=== PATIENT | female | born 1980 | race Caucasian/White ===

== ENCOUNTER → 2019-07-01 15:35 | Outpatient (CLI) | payer MEDICAID, SELFPAY ==
[2019-07-01 19:18] LABS: Chlamydia Trachomatis by PCR Negative (Negative); Neisserai gonorrhoeae by PCR Negative (Negative); Probe Check PASS; Sample Adequacy Control PASS; Specimen Processing Control PASS
[2019-07-04 00:26] LABS: Rapid Plasmin Reagin (RPR) NONREACTIVE (NONREACTIVE)
[2019-07-04 14:11] LABS: HPV APTIMA, High Risk Negative (Negative); HPV Reflexed? YES, CHARGE PATIENT
== END ==
PROVIDERS: PCP Family Medicine; Visit Provider Obstetrics & Gynecology
DX: Z12.4 Encounter for screening for malignant neoplasm of cervix (principal); Z11.3 Encounter for screening for infections with a predominantly sexual mode of transmission
CPT/HCPCS: 36415; 86592; 87491; 87591; 87624; 88175; G0145

== ENCOUNTER 2019-08-03 10:27 | Emergency (ER) | payer MEDICAID, SELFPAY ==
[2019-08-03 10:28] VITALS: BP 124/80; PULSE 89; RESP 17; TEMP 36.7; O2SAT 100; BMI 32.0
--- NOTE | 2019-08-03 10:41 | RAD_ITS ---
STUDY: X-RAY - LEFT SHOULDER REASON FOR EXAM: Female, 38 years old. fall TECHNIQUE: 2 view(s) of the shoulder. COMPARISON: None. FINDINGS: Normal glenohumeral articulation. Normal acromioclavicular joint. Normal acromion. Normal humeral head and visualized proximal humerus. There is soft tissue edema. There is deformity of the left lateral third and fourth ribs. Normal visualized pulmonary apex. RAD/Shoulder min 2 Views IMPRESSION: Soft tissue edema Findings suspicious for fractures of left lateral third and fourth ribs of unknown age which can be further evaluated with CT or left rib series Electronically Signed: Ross Johns, at 11:26 EDT Tel , Service support ,
--- NOTE | 2019-08-03 10:46 | ED.DCSUM_ITS ---
- ER Visit Summary Date of Service: 08/03/19 Chief Complaint: Left shoulder pain History of Present Illness: The patient is a [address] Santana. She reports that she fell 6 weeks ago and landed on her left shoulder. She has had a pain ever since then. She reports it is gradually worsening. It is a throbbing pain is 10 out of 10 at worst and 7 out of 10 currently. Is worsened by abduction or laying down. She taken ibuprofen with minimal relief. She is right-hand dominant. She denies any other injuries. No numbness or weakness. Physical Examination: Vitals: Stable. Afebrile. General: Well-nourished and well-developed. Head: Normocephalic atraumatic. Neck: Supple, no lymphadenopathy. No JVD. Nontender. Cardiovascular: Regular rate and rhythm. No murmurs. Respiratory: No respiratory distress. Clear to auscultation bilaterally. Abdominal: Soft, nontender, nondistended, normal bowel sounds. No guarding, rebound, or peritoneal signs. Back: Nontender. Extremities: Moderate tenderness palpation over her left AC joint, mild diffuse tenderness palpation over her left deltoid. She does have pain with abduction active much greater than passive. She has pain with external rotation. She has a 2+ radial pulse. Normal sensation to light touch in a C5-T1 distribution. No edema. Skin: Normal color, no rash. Neurologic: Alert and oriented ?3. Cranial nerves II through XII are intact. Normal strength and sensation. Psych: Normal affect. Test Results: Emergency Department Course a Clinical Impression(s) from Imaging Studies Shoulder X-Ray 08/03/19 10:41 IMPRESSION: Soft tissue edema Findings suspicious for fractures of left lateral third and fourth ribs of unknown age which can be further evaluated with CT or left rib series Electronically Signed: Ross Johns, at 11:26 EDT Tel , Service support , nd Treatment: An [facility] report was obtained which shows the patient was on Suboxone until September of last year. I do not think that treating her with opiate- based medications for 6 weeks of shoulder pain is in her best interest. She was treated with Tylenol and placed in a sling. I did discuss with her the possibility of the rib fractures on the left. However, this injury was 6 weeks ago. I still do not think that opiate medications are in her best interest. Treatment Plan: We discussed the possibility of a rotator cuff tear. Patient will be discharged with naproxen. She is instructed to use Tylenol in addition to this. Follow-up with Dr. Ayan Costello in 1 week if not improving. Return to the emergency department for any worsening symptoms. Disposition: To home in improved and stable condition. Impression: 1. Left shoulder pain, uncertain cause. This note was generated with [employer] software. It may contain incorrect words, spelling, and punctuation that were not noted in review of the chart prior to signing ED Disposition - Plan for ED Patient: Instructions: ED Shoulder Pain Uncertain Cause Prescriptions: Naproxen [Naprosyn] 500 mg PO BID #14 tab Prescription Printed Referrals: Ayan Costello MD [STAFF PHYSICIAN] - 1 Week if not improving
[2019-08-03] MEDS: Acetaminophen 500 MG Tablet 1000 MG PO (10:52)
[2019-08-03 11:49] VITALS: BP 120/80; PULSE 78; RESP 18
== END 2019-08-03 11:49 | disposition home or self-care (01) ==
LOC: ED 11:05
PROVIDERS: Emergency Provider Emergency Medicine; PCP Family Medicine
DX: M25.512 Pain in left shoulder (principal); Z72.0 Tobacco use
CPT/HCPCS: 73030; 99283

== ENCOUNTER → 2022-07-01 | Outpatient (CLI) | payer MEDICAID, SELFPAY ==
[2022-07-01 13:42] LABS: T4 Free Direct 0.84 ng/dL (0.76-1.46)
== END | disposition home or self-care (01) ==
LOC: WOBLAB 11:20
PROVIDERS: Visit Provider Obstetrics & Gynecology
DX: Z01.419 Encounter for gynecological examination (general) (routine) without abnormal findings (principal)
CPT/HCPCS: 36415; 83036; 84439; 84443

== ENCOUNTER 2022-11-03 18:00 | Emergency (ER) | payer MEDICAID, SELFPAY ==
[2022-11-03 18:01] VITALS: BP 179/97
[2022-11-03 18:02] VITALS: PULSE 99; RESP 14; TEMP 36.8; O2SAT 100; BMI 31.8
--- NOTE | 2022-11-03 18:27 | CT_ITS ---
STUDY: CT ABDOMEN AND PELVIS WITH CONTRAST REASON FOR EXAM: Female, 41 years old. RLQ pain RADIATION DOSAGE (If Supplied By Facility): CTDIvol = ( 15.84 ) mGy, DLP = ( 718.20 ) mGycm TECHNIQUE: Transaxial images were obtained from the dome of the diaphragm to the symphysis pubis without oral contrast. IV 100mL Isovue-300 was administered. Sagittal and coronal images were reconstructed. Individualized dose optimization techniques were used for this CT. COMPARISON: None. FINDINGS: The visualized lung bases are unremarkable. The visualized portions of the heart are within normal limits. Normal liver. Normal gallbladder and extrahepatic biliary system. Normal spleen. Normal pancreas. Normal bilateral adrenal glands. Normal right kidney. Normal left kidney. Normal visualized stomach. Normal small intestine. Normal colon. The appendix is visualized and appears normal. Normal abdominal aorta. Normal inferior vena cava. Normal retroperitoneum. Normal urinary bladder. 3.5 cm simple cyst in the right ovary consistent with a corpus luteum cyst. Normal abdominal wall. Normal osseous structures. CT/Abdomen/Pelvis W IV Cont ONLY IMPRESSION: 3.5 cm right ovarian corpus luteum cyst. Electronically Signed: Vic Raman MD at 20:42 EDT ,
--- NOTE | 2022-11-03 18:31 | EX.ED.DYSGE1 ---
HPI <SRIDHAR Ware - Last Filed: 11/03/22 21:06> History of Present Illness Chief Complaint: Abd Pain Narrative Narrative: Patient presenting today with right lower quadrant abdominal pain that started around 12:30 PM this afternoon. She did have some abdominal discomfort when waking up this morning but it did not worsen until this afternoon. She reports that the pain is sharp and constant and is worsening in severity. She reports, I am in extreme pain, I have never been in this much pain in my life. She reports that [place] and was unable to get off for several hours while having this pain or she would have came in sooner. Previous abdominal surgeries include tubal ligation. She is nauseous and has had several episodes of vomiting. Slightly loose bowel movement earlier today. She denies any fever, chills, hematemesis, blood in the stool, urinary symptoms. PMH includes PCOS. PFSH <SRIDHAR Ware - Last Filed: 11/03/22 21:06> PFSH Home Medications naproxen 500 mg tablet 500 mg PO BID #14 tabs 08/03/19 [Rx Last Taken Unknown] trazodone 50 mg tablet 50 mg PO QHS 08/03/19 [History Last Taken Unknown] gabapentin 800 mg tablet 800 mg PO TID 11/03/22 [History Last Taken Unknown] hydrocodone-acetaminophen 5-325mg 5mg-325mg 1 tab PO Q6H PRN pain 3 days #12 tabs 11/03/22 [Rx Last Taken Unknown] metformin 500 mg tablet 500 mg PO BID 11/03/22 [History Last Taken Unknown] ondansetron 4 mg disintegrating tablet 4 mg PO Q6H PRN nausea and vomiting #20 tabs 11/03/22 [Rx Last Taken Unknown] prazosin 2 mg capsule 2 mg PO QHS 11/03/22 [History Last Taken Unknown] spironolactone 100 mg tablet 100 mg PO DAILY 11/03/22 [History Last Taken Unknown] Allergy/AdvReac Type Severity Reaction Status Date / Time No Known Allergies Allergy Verified 11/03/22 18:03 Social History Smoking Status: Current every day smoker tobacco type: cigarettes ROS <SRIDHAR Ware - Last Filed: 11/03/22 21:06> ROS ED Constitutional Constitutional ED: Denies chills or fever(s) Cardiovascular Cardiovascular: Denies chest pain Respiratory/Chest Respiratory/Chest: Denies cough or dyspnea Gastrointestinal Gastrointestinal: Reports abdominal pain, nausea and vomiting; Denies constipation or diarrhea Genitourinary Genitourinary ED: Denies dysuria, hematuria or urinary frequency Musculoskeletal Musculoskeletal: Denies arthralgias or myalgias Integumentary Denies abscess, Abrasions or rash Neurologic Neurologic: Denies weakness EXAM <SRIDHAR Ware - Last Filed: 11/03/22 21:06> Physical Exam Const Vital Signs: 11/03/22 18:02 11/03/22 18:01 Temperature 98.2 F Temperature Source Temporal Pulse Rate 99 Respiratory Rate 14 Blood Pressure 179/97 H Blood Pressure Mean 124 Pulse Ox 100 Oxygen Delivery Method Room Air Positive well nourished, well developed and no apparent distress General Appearance ED: well developed HEENT Reports normocephalic and head/scalp atraumatic Mouth ED: Yes moist mucous membranes normal Eyes PERRL and EOMs intact bilaterally Neck full ROM and supple Chest Wall inspection of chest normal Resp normal respiratory effort and clear to auscultation bilaterally Cardio regular rate and regular rhythm GI non-distended and no masses GI Narrative: Positive McBurney's point tenderness, positive Rovsing sign, no rigidity or guarding or peritoneal signs. Back/Spine normal ROM and normal to inspection Extremity normal to inspection and full ROM Neuro oriented x3, CN's II-XII intact bilaterally, moves all extremities, no focal motor deficits and no sensory deficits noted Sensorium / Orientation: awake and alert Psych mental status grossly normal and thought process normal Skin no rashes or lesions noted and no wounds <Sherwin Cobb MD - Last Filed: 11/04/22 00:03> Physical Exam Const Vital Signs: 11/03/22 18:02 11/03/22 18:01 Temperature 98.2 F Temperature Source Temporal Pulse Rate 99 Respiratory Rate 14 Blood Pressure 179/97 H Blood Pressure Mean 124 Pulse Ox 100 Oxygen Delivery Method Room Air MDM <SRIDHAR Ware - Last Filed: 11/03/22 21:06> [facility] MDM Narrative Medical decision making narrative: Patient presenting today with right lower quadrant abdominal pain that started this afternoon. She reports that the pain is sharp and constant. She looks very uncomfortable on initial examination and is hunched over in the bed actively vomiting. She reports that she has never been in this much pain in her life. She does have a positive McBurney's point tenderness to palpation as well as a positive Rovsing sign. To be obtained to rule out leukocytosis, anemia, electrolyte abnormality, hepatobiliary etiology, UTI. CT of the abdomen and pelvis will be obtained to rule out appendicitis, diverticulitis, bowel obstruction, ovarian cyst rupture, and other abdominal etiology. She has been given IV Zofran, morphine, and fluids. On reexamination she is still in a lot of pain and actively vomiting, she has been given Dilaudid and additional Zofran. CT scan does show a 3.5 cm right ovarian cyst without any evidence of appendicitis or acute abdominal etiology. Patient is still in a lot of pain and actively vomiting. Transvaginal ultrasound will be obtained to rule out ovarian torsion and she has been given Toradol and Reglan. He denies any history of alcohol or marijuana use. Lab Data Attestation: I reviewed the patient's lab results. Labs: Laboratory Results - last 24 hr 11/03/22 11/03/22 18:40 19:27 WBC 9.2 RBC 3.96 L Hgb 13.0 Hct 38.3 MCV 96.7 MCH 32.8 H MCHC 33.9 RDW Std Deviation 46.1 H RDW Coeff of Hilario 12.8 Plt Count 220 MPV 11.3 Immature Gran % (Auto) 0.300 Neut % (Auto) 77.9 H Lymph % (Auto) 16.0 L [place] % (Auto) 5.1 Eos % (Auto) 0.3 Baso % (Auto) 0.4 Absolute Neuts (auto) 7.1 Absolute Lymphs (auto) 1.47 Nucleated RBC % 0 Sodium 135 L Potassium 4.0 Chloride 101 Carbon Dioxide 27.0 Anion Gap 7 BUN 12 Creatinine 1.17 H Estim Creat Clear Calc 47.75 Est GFR (MDRD) Af Amer 65 Est GFR (MDRD) Non-Af 54 L BUN/Creatinine Ratio 10.3 Glucose 87 Calcium 9.0 Total Bilirubin 0.30 AST 25 ALT 25 Alkaline Phosphatase 61 Total Protein 7.7 Albumin 4.0 Globulin 3.7 Albumin/Globulin Ratio 1.1 Lipase 21 Urine Color Yellow Urine Clarity Clear Urine pH 6.0 Ur Specific [place] 1.015 Urine Protein 30 H Urine Glucose (UA) Normal Urine Ketones 50 H Urine Occult Blood Negative Urine Nitrite Negative Urine Bilirubin Negative Urine Urobilinogen Normal Ur Leukocyte Esterase 25 H Urine RBC 0 SEEN Urine WBC 0 SEEN Ur Squamous Epith Cells 0-5 SEEN Urine Bacteria 0 SEEN Urine Mucus 0 SEEN Urine Test Negative Radiography Diagnostic Testing: Clinical Impression(s) from Imaging Studies Abdomen/Pelvis CT 11/03/22 18:27 IMPRESSION: 3.5 cm right ovarian corpus luteum cyst. Electronically Signed: Vic Raman MD at 20:42 EDT , Transvaginal US 11/03/22 21:00 IMPRESSION: Suspect 3.8 cm hemorrhagic corpus sodium cyst or endometrioma the right ovary. No torsion. Electronically Signed: Vic Raman MD at 22:35 EDT Reading Location ID and State: [id number] / [place] Tel , Service support , <Sherwin Cobb MD - Last Filed: 11/04/22 00:03> [facility] Narrative Medical decision making narrative: Patient presenting today with right lower quadrant abdominal pain that started this afternoon. She reports that the pain is sharp and constant. She looks very uncomfortable on initial examination and is hunched over in the bed actively vomiting. She reports that she has never been in this much pain in her life. She does have a positive McBurney's point tenderness to palpation as well as a positive Rovsing sign. To be obtained to rule out leukocytosis, anemia, electrolyte abnormality, hepatobiliary etiology, UTI. CT of the abdomen and pelvis will be obtained to rule out appendicitis, diverticulitis, bowel obstruction, ovarian cyst rupture, and other abdominal etiology. She has been given IV Zofran, morphine, and fluids. On reexamination she is still in a lot of pain and actively vomiting, she has been given Dilaudid and additional Zofran. CT scan does show a 3.5 cm right ovarian cyst without any evidence of appendicitis or acute abdominal etiology. Patient is still in a lot of pain and actively vomiting. Transvaginal ultrasound will be obtained to rule out ovarian torsion and she has been given Toradol and Reglan. She denies any history of alcohol or marijuana use. Dr. Cobb: I have personally performed a face to face assessment of the patient and have reviewed the ADRIENNE Note. I performed a substantive portion of the visit including all aspects of the following. My giron findings include: History is right lower quadrant abdominal pain, nausea and vomiting Exam is afebrile. Vital signs noted. Mild tenderness to palpation right lower quadrant. Active vomiting in the emergency department. Medical Decision Making concern for appendicitis. Check CT. Check labs. Analgesia. 2 doses of Zofran, 1 dose of morphine, [address] shows normal appendix on review of radiology report. There is an ovarian cyst that is 3.5 cm. Given the patient's continued vomiting and pain, ultrasound was obtained. I reviewed reviewed the radiology report which shows a probable hemorrhagic cyst versus endometrioma. Upon repeat examination, patient is hungry and would like something to eat. She is tolerating p.o. pop tarts that her brought with her. I feel she be discharged safely home to follow-up with her [employer]. She was written a prescription for Alpha for 3 days, and for Zofran tablets to take as needed. I do not feel that she requires admission at this time. I feel she be discharged safely home with follow-up. Return instructions to the emergency department were reviewed. Disposition is discharged home in stable condition. Other additions or changes: [None] Lab Data Labs: Laboratory Results - last 24 hr 11/03/22 11/03/22 18:40 19:27 WBC 9.2 RBC 3.96 L Hgb 13.0 Hct 38.3 MCV 96.7 MCH 32.8 H MCHC 33.9 RDW Std Deviation 46.1 H RDW Coeff of Hilario 12.8 Plt Count 220 MPV 11.3 Immature Gran % (Auto) 0.300 Neut % (Auto) 77.9 H Lymph % (Auto) 16.0 L [place] % (Auto) 5.1 Eos % (Auto) 0.3 Baso % (Auto) 0.4 Absolute Neuts (auto) 7.1 Absolute Lymphs (auto) 1.47 Nucleated RBC % 0 Sodium 135 L Potassium 4.0 Chloride 101 Carbon Dioxide 27.0 Anion Gap 7 BUN 12 Creatinine 1.17 H Estim Creat Clear Calc 47.75 Est GFR (MDRD) Af Amer 65 Est GFR (MDRD) Non-Af 54 L BUN/Creatinine Ratio 10.3 Glucose 87 Calcium 9.0 Total Bilirubin 0.30 AST 25 ALT 25 Alkaline Phosphatase 61 Total Protein 7.7 Albumin 4.0 Globulin 3.7 Albumin/Globulin Ratio 1.1 Lipase 21 Urine Color Yellow Urine Clarity Clear Urine pH 6.0 Ur Specific [place] 1.015 Urine Protein 30 H Urine Glucose (UA) Normal Urine Ketones 50 H Urine Occult Blood Negative Urine Nitrite Negative Urine Bilirubin Negative Urine Urobilinogen Normal Ur Leukocyte Esterase 25 H Urine RBC 0 SEEN Urine WBC 0 SEEN Ur Squamous Epith Cells 0-5 SEEN Urine Bacteria 0 SEEN Urine Mucus 0 SEEN Urine Test Negative Radiography Diagnostic Testing: Clinical Impression(s) from Imaging Studies Abdomen/Pelvis CT 11/03/22 18:27 IMPRESSION: 3.5 cm right ovarian corpus luteum cyst. Electronically Signed: Vic Raman MD at 20:42 EDT , Transvaginal US 11/03/22 21:00 IMPRESSION: Suspect 3.8 cm hemorrhagic corpus sodium cyst or endometrioma the right ovary. No torsion. Electronically Signed: Vic Raman MD at 22:35 EDT Reading Location ID and State: [id number] / [place] Tel , Service support , Discharge Plan Triage Chief Complaint: Abd Pain ED Midlevel Provider: Kailey Jackson ED Provider: Sherwin Cobb Dx/Rx/DC Orders Clinical Impression: Ovarian cyst, Nausea and vomiting Instructions: ED Ovarian Cyst, ED Vomiting (Adult) Prescriptions: New ondansetron 4 mg tablet,disintegrating 4 mg PO Q6H PRN (Reason: nausea and vomiting) Qty: 20 0RF hydrocodone-acetaminophen 5-325 mg tablet 1 tab PO Q6H PRN (Reason: pain) 3 Days Qty: 12 0RF No Action trazodone 50 MG tablet 50 mg PO QHS naproxen 500 MG tablet 500 mg PO BID Qty: 14 0RF gabapentin 800 mg tablet 800 mg PO TID Patient Comments: take 1 tablet by mouth three times a day spironolactone 100 mg tablet 100 mg PO DAILY prazosin 2 mg capsule 2 mg PO QHS Patient Comments: take 1 capsule by mouth nightly metformin 500 mg tablet 500 mg PO BID Patient Comments: take 1 tablet by mouth twice a day with meals Primary Care Provider: Care Physician,Heidi Primary Referrals: [facility] Doctor,Out of [Non-Staff] - Activity Restrictions/Additional Instructions: Follow-up with your [employer] in the next 3 to 5 days. Clear liquid diet and advance as tolerated. Disposition Disposition: Home, Self Care
[2022-11-03] MEDS: Morphine 4 MG/ML Syringe IV (18:38)
[2022-11-03] MEDS: Ondansetron 4 MG/2 ML Vial IV ×2 (18:38→19:02)
[2022-11-03] MEDS: 0.9% Normal Saline 1,000 ML 999 ML IV ×2 (18:39→20:30)
[2022-11-03 18:53] LABS: Absolute Lymphocyte Count 1.47 X10^3/uL (0.83-4.51); Absolute Neutrophil Count 7.1 X10^3/uL (2.0-7.7); Basophil# 0.04 X10^3/uL; Basophil% 0.4 % (0-1); Eosinophil# 0.03 X10^3/uL; Eosinophils% 0.3 % (0-5); Hematocrit 38.3 % (37-47); Lymphocyte # 1.47 X10^3/ul (0.83-4.51); Mean Corp Hgb Conc 33.9 g/dL (32-36); Mean Corpuscular Hgb 32.8 pg (27.0-32.0); Mean Corpuscular Volume 96.7 fL (81-99); Mean Platelet Vol. 11.3 fl (6.2-12.0); Monocyte# 0.47 X10^3/uL; Monocyte% 5.1 % (0-10); NRBC Flagged by Analyzer 0 % (0-5); Neutrophil # 7.14 X10^3/uL (2.7-7.7); Neutrophil % 77.9 % (47-70); Platelet Count 220 K/mm3 (150-450); RBC Distribution Width CV 12.8 % (11.6-14.6); RBC Distribution Width SD 46.1 fl (35.1-43.9); Red Blood Count 3.96 M/mm3 (4.2-5.4); White Blood Count 9.2 K/mm3 (4.4-11.0)
[2022-11-03] MEDS: HYDROmorphone 1 MG/ML Syringe IV (19:02)
[2022-11-03 19:12] LABS: ALB/GLOB Ratio 1.1 RATIO (0.9-2.4); AST(SGOT) 25 U/L (15-37); Alanine Aminotransfer ALT/SGPT 25 U/L (13-56); Alkaline Phosphatase 61 U/L (45-117); Anion Gap 7 (5-15); BUN 12 mg/dL (7-18); BUN/Creat Ratio 10.3 RATIO (10-20); Chloride 101 mmol/L (98-107); Creatinine, Serum 1.17 mg/dL (0.55-1.02); EST Glomerular Filtration Rate 54 mL/min (>60); Est Glom Filt Rate - Afr Amer 65 mL/min (>60); Estimated Creatinine Clearance 47.75 ml/min; Globulin 3.7 g/dL (2.2-4.2); Glucose 87 mg/dL (74-106); Lipase 21 U/L (13-75); Protein, Total 7.7 g/dL (6.4-8.2); Sodium Level 135 mmol/L (136-145)
[2022-11-03 19:31] LABS: Bacteria 0 SEEN /hpf (None Seen); Mucous, Urine 0 SEEN /hpf (<or=2+); Red Blood Cells-Urine 0 SEEN /hpf (0-5); White Blood Cells 0 SEEN /hpf (0-5)
[2022-11-03 19:34] LABS: Color, Urine Yellow (Yellow); Glucose, Dipstick Normal (Normal); Ketone-Dipstick 50 mg/dl (Negative); Leukocyte Esterase-Dipstick 25 /ul (Negative); Nitrite-Dipstick Negative (Negative); Occult Blood-Urine Negative /ul (Negative); Protein-Dipstick 30 mg/dl (Negative); Specific Gravity, Urine 1.015 (1.002-1.030); Urine Bilirubin Dipstick Negative (Negative); Urine Clarity Clear (Clear); Urine Urobilinogen Normal (Normal)
[2022-11-03 19:40] LABS: Internal QC Validated? YES +Cl - CLEAR BKGD; Pregnancy, Urine Negative Negative; Squamous Epithelial Cells - UA 0-5 SEEN /hpf (5-10)
--- NOTE | 2022-11-03 21:00 | US_ITS ---
STUDY: ULTRASOUND TRANSVAGINAL CLINICAL: Female, 41 years old. RLQ tenderness and pain, R ovarian cyst TECHNIQUE: Transvaginal COMPARISON: CT earlier today FINDINGS: Normal uterine size measuring 8.9 x 6.3 x 4.7 cm in maximal craniocaudal dimension. There are no myometrial masses. Normal endometrial thickness measuring 8 mm. There are no endometrial masses, and there is no fluid in the endometrial cavity. 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 Normal uterine cervix. Normal right ovary, measuring 4.8 x 4.1 x 3.3 cm. 3.8 cm oval isoechoic mass with increased through transmission consistent with a hemorrhagic corpus luteum cyst or endometrioma.. Normal left ovary, measuring 3.4 x 2.1 x 1.4 cm. There are multiple follicles without a dominant cyst. There is no free fluid in the pelvis. Polycystic ovary disease: No. US/Transvaginal Non- IMPRESSION: Suspect 3.8 cm hemorrhagic corpus sodium cyst or endometrioma the right ovary. No torsion. Electronically Signed: Vic Raman MD at 22:35 EDT ,
[2022-11-03] MEDS: Metoclopramide 10 MG/2 ML Vial 5 MG IV (21:07)
[2022-11-03] MEDS: Ketorolac 15 MG/ML Vial IV (21:07)
[2022-11-04 00:15] VITALS: BP 138/98; PULSE 87; RESP 18; O2SAT 99
== END 2022-11-04 00:17 | disposition home or self-care (01) ==
PROVIDERS: Physician Assistant; Emergency Provider Emergency Medicine; Visit Provider Emergency Medicine
DX: N83.11 Corpus luteum cyst of right ovary (principal); R11.2 Nausea with vomiting, unspecified; F17.210 Nicotine dependence, cigarettes, uncomplicated; Z79.84 Long term (current) use of oral hypoglycemic drugs
CPT/HCPCS: 74177; 76830; 80053; 81001; 81025; 83690; 85025; 93976; 96361; 96374; 96375; 96376; 99283; J7030; Q9967; A4216; J2405

== ENCOUNTER → 2024-10-15 | Outpatient (CLI) | payer MEDICAID, SELFPAY ==
--- NOTE | 2024-10-15 13:00 | CT_ITS ---
PROCEDURE: SOFT TISSUE NECK WITH CONTRAST 10/15/2024 REASON FOR EXAM: SIALOLITHIASIS TECHNIQUE: SOFT TISSUE NECK WITH CONTRAST CONTRAST: VOLUME: mL One or more dose reduction techniques were used (e.g., Automated exposure control, adjustment of the mA and/or kV according to patient size, use of iterative reconstruction technique). RADIATION DOSE SUMMARY: CTDlvol:mGy DLP: mGycm COMPARISON: none FINDINGS: An ill defined hypo-enhancing area seen along the posterior aspect of the left submandibular gland. No obvious sialolithiasis. Normal unenhanced CT appearance of the parotid and right submandibular glands. The thyroid gland shows no definite abnormality. Normal CT appearance of the supra-and infra hyoid deep neck spaces. Normal CT appearance of the larynx, namely the supraglottic, glottic and infra, glottic spaces. The base of the tongue, the uvula, the epiglottis, the vocal cords, the upper trachea, the upper esophagus are unremarkable with no obvious masses Prominent subcentimeteric cervical lymph nodes are seen involving groups I, II, III, possibly reactive. The visualized structures of the posterior fossa show no definite abnormality. Examined paranasal sinuses are unremarkable. CT/Soft Tissue Neck WITH Contrast IMPRESSION: An ill defined hypo-enhancing area seen along the posterior aspect of the left submandibular gland, possibly inflammatory. Advise clinical correlation. No obvious sialolithiasis. Reading Location: [place] [id number]
== END | disposition home or self-care (01) ==
LOC: CT 12:56
PROVIDERS: Referring Provider Otolaryngology Otolaryngology/Facial Plastic Surgery; Visit Provider Otolaryngology Otolaryngology/Facial Plastic Surgery
DX: R22.1 Localized swelling, mass and lump, neck (principal); K11.5 Sialolithiasis
CPT/HCPCS: 70491; Q9967